=== PATIENT | male | born 1985 | race Caucasian/White ===

== ENCOUNTER → 2021-10-31 09:43 | Outpatient (CLI) | payer BC, SELFPAY ==
[2021-11-01 23:20] LABS: SARS-CoV-2 RNA PCR Positive
== END ==
PROVIDERS: PCP Nurse Practitioner; Visit Provider Nurse Practitioner
DX: U07.1 COVID-19 (principal)
CPT/HCPCS: C9803; U0003; U0005

== ENCOUNTER 2024-06-06 09:52 | Outpatient (CLI) | payer BC, SELFPAY ==
--- NOTE | ~2024-06-06 | US_ITS ---
EXAMINATION: US soft tissue groin RT DATE: 06/06/2024 10:05 INDICATION: Other intra-abdominal and pelvic swelling. TECHNIQUE: Multiple grayscale and Doppler ultrasound images of the right groin were obtained. COMPARISON: None FINDINGS: There is a right inguinal hernia containing fat. IMPRESSION: 1. Right inguinal hernia containing fat. Reviewed, dictated and finalized at location A.
== END 2024-06-06 09:53 ==
LOC: GOSHIMG 09:53
PROVIDERS: PCP Nurse Practitioner Family; Visit Provider Nurse Practitioner Family
DX: R19.09 Other intra-abdominal and pelvic swelling, mass and lump (principal); K40.90 Unilateral inguinal hernia, without obstruction or gangrene, not specified as recurrent
CPT/HCPCS: 76882

== ENCOUNTER 2024-07-06 09:14 | Outpatient (CLI) | payer BC, SELFPAY ==
[2024-07-11 10:41] VITALS: BMI 29.5
--- NOTE | 2024-07-11 10:41 | WPDHOMESLEEP ---
Sleep Study - Home Unattended Date of Study: 07/06/24 Ordering Provider: Felicia Odonnell NP Interpreting Provider: Daya Jones DO Home Sleep Study Type: Watch PAT Height: 1.75 m Weight: 90.718 kg Body Mass Index: 29.5 Neck Circumference (inches): 17 Adel: 1 Reason for Sleep Study Snoring, difficulty falling asleep Sleep History The patient is a 39-year-old male that had a sleep study ordered by his primary care for evaluation of sleep apnea. The patient states that he has loud snoring, excessive daytime sleepiness and difficulty falling asleep. He denies having witnessed apneas during the night. He denies choking and gasping while asleep. He denies having trouble breathing on his back. He denies waking up with a headache in the morning. He does admit to having a dry mouth or throat in the morning. He denies nocturnal heartburn. He denies nocturia. He denies having difficulty maintaining sleep. He does have difficulty returning to sleep if he does wake up during the night. He currently uses a hypnotic or sedative to help him sleep. He denies having anxiety about sleep. He does admit to having under refreshing sleep feeling tired in the morning. He denies having the urge to fall asleep during the day. He denies feeling drowsy while driving. He does admit to clenching or grinding his teeth. He denies kicking or jerking his legs excessively during the night. He goes to bed at 11:00 p.m. on work days and 11:45 p.m. on is stays. It takes him 30 minutes to fall asleep. He typically gets 6 hours of sleep on work days and 6-1/2 hours of sleep on his days off. He denies taking any planned naps. He denies having sleep paralysis, cataplexy and hypnagogic/ hypnopompic hallucinations. He consumes 1-2 cups of caffeinated beverage per day. He consumes 1-2 glasses of an alcoholic beverage twice per week. He denies smoking cigarettes. He denies having a rotating shift schedule at work. [facility] Past Medical History Medical History Bilateral knee pain BMI 29.0-29.9,adult Elevated BP without diagnosis of hypertension Elevated fasting glucose Hyperlipidemia Hypersomnia Lump in the groin Seasonal allergies Snoring Witnessed episode of apnea Surgical History Surgical History H/O: vasectomy 2021 Family History Family History Father Diabetes mellitus Grandparent Hypertension Social History Social History Smoking status: Never smoker Alcohol intake: current Alcohol use details: Beer- 4-5 a week Substance use: never Do You Feel Safe in your Home?: Yes Lack of Transportation: No Lack of Food: Never True Current Housing: I Have Housing Concerned About Future Housing: No Difficulty Paying Gas/Electric Bills: No Difficulty Paying for Meds: No Currently Unemployed: No Education: Bachelor's Degree Difficulty w/ Childcare or Family Care: No Medications Home Medications Medication Instructions Recorded Confirmed Type cetirizine 10 mg tablet (Zyrtec) 10 mg PO DAILY 03/01/24 06/15/24 History fluticasone propionate 50 1 spray intranasal DAILY 03/01/24 06/15/24 History mcg/actuation nasal spray,suspension (Flonase Allergy Relief) multivitamin 1 tablet PO DAILY 03/01/24 06/15/24 History atorvastatin 10 mg tablet 10 mg PO DAILY #90 tabs 05/19/24 06/15/24 Rx Sleep Procedure The sleep study was completed using [employer] a technically adequate device with seven channels: peripheral arterial tone, actigraphy, body position, snore, respiratory movement, pulse oximetry, sleep staging, and heart rate. Prior to using the device, the patient received verbal and written instructions for its application and was provided with the [employer] desk phone number for [employer]
== END 2024-07-10 09:46 | disposition home or self-care (01) ==
LOC: ANHCSM 09:15
PROVIDERS: PCP Nurse Practitioner Family; Visit Provider Nurse Practitioner Family
DX: G47.9 Sleep disorder, unspecified (principal)
CPT/HCPCS: 95800

== ENCOUNTER 2024-08-11 08:34 | Outpatient (CLI) | payer BC, SELFPAY | END 2024-08-11 08:35 | disposition home or self-care (01) | LOC: ANHSURGERY 08:36 | PROVIDERS: PCP Nurse Practitioner Family; Visit Provider Surgery | DX: K40.90 Unilateral inguinal hernia, without obstruction or gangrene, not specified as recurrent (principal); Z01.818 Encounter for other preprocedural examination | CPT/HCPCS: 36415; 86850; 86900; 86901 ==

== ENCOUNTER 2024-08-15 02:38 | Day surgery (SDC) | payer BC, SELFPAY ==
[2024-08-08 13:07] VITALS: BMI 29.5
--- NOTE | 2024-08-08 13:08 | PC.NURSE ---
Report to the Outpatient Waiting Room, entrance under the green pavilion located off [facility], at time _1130_ on date _[id number]_. Planned Procedure Time: _130pm_.? Time changes happen often and if your time is changed the preop area will call you the afternoon before. - You and your visitor will be asked to self-screen and do not enter if you have any COVID symptoms. Please call surgeon if you need to reschedule. - A mask is optional within the hospital at this time. Patients may have clear liquids (water, carbonated beverages, clear teas, apple juice) until 3 hours prior to surgery with a maximum of 20 ounces. - No food from midnight until time of surgery and no smoking Take only the following medications with a SIP of water on the morning of surgery: ___Flonase___ DO NOT STOP ANY OF YOUR OTHER PRESCRIPTION MEDICATIONS PRIOR TO SURGERY EXCEPT THE FOLLOWING Medications to discontinue per physician ___Multivitamin and fish oil Date to take last qzkc___[id number] Please no make-up, nail french, hairspray, perfume, deodorant, or body powder the day of surgery.? No jewelry (including any body piercings) or valuables the day of surgery, leave them at home.? Please take a shower or bath the night before, or the morning of, surgery with an antibacterial soap.? Wear comfortable, loose fitting clothing.? - Jewelry must be removed prior to entering the operating room.? Rings and piercings that are not removed may be cut off. - The hospital will not accept responsibility for valuables.? - Please leave all valuables, including medications, at home the day of surgery. If you are going home after surgery, a licensed personal driver must drive you home.? - NO public transportation without another adult if you receive anesthesia. - We recommend that an adult stay with you for 24 hours following discharge. - We also recommend that you do not drive, make important decision, drink alcoholic beverages, or take any drugs that were not prescribed by your health care provider for at least 24 hours after your discharge time. Follow any additional instructions given to you from your surgeon. Telephone instructions given to __Kyler__and asked if any additional questions and then verbalized understanding. Patient advised to call surgeon office or pre surgery nurse liaison [phone] if any additional questions.
[2024-08-15] VITALS (10 sets, daily range): BP systolic 114–148; BP diastolic 73–100; PULSE 71–82; RESP 16–20; TEMP 36.5–36.9; O2SAT 96–100
[2024-08-15] MEDS: ACETAMINOPHEN 500 MG TABLET 1000 MG PO (12:15)
[2024-08-15] MEDS: KETOROLAC 15 MG/ML VIAL (*BKC) IV PUSH (12:25)
--- NOTE | 2024-08-15 12:54 | P.PNAN_ITS ---
Anes - Initial Pre Proc Eval Procedure: Operation Date: 08/15/24 13:30 Proposed Procedures p Robotic Assisted Laparoscopic Right Inguinal Hernia Repair with Mesh, Possible Left Inguinal Hernia Repair - Rolf Colunga MD Date/Time: 08/15/24 12:54 Surgeon: Rolf Colunga MD Pre Op Diagnosis: reducible right inguinal hernia Patient Data Age: 39 Gender: M Height: 1.75 m Weight: 88.6 kg Last Vital Signs Temp 36.9 C 08/15/24 11:46 Pulse 74 08/15/24 11:46 Resp 18 08/15/24 11:46 BP 130/88 08/15/24 11:46 Pulse Ox 96 08/15/24 11:46 O2 Del Method Room Air 08/15/24 11:46 Allergies Allergy/AdvReac Type Severity Reaction Status Date / Time Penicillins Allergy Hives Verified 08/08/24 12:59 Home Medications Medication Instructions Recorded Confirmed Type cetirizine 10 mg tablet (Zyrtec) 10 mg PO DAILY 03/01/24 08/08/24 History fluticasone propionate 50 1 spray intranasal DAILY 03/01/24 08/08/24 History mcg/actuation nasal spray,suspension (Flonase Allergy Relief) multivitamin 1 tablet PO DAILY 03/01/24 08/08/24 History atorvastatin 10 mg tablet 10 mg PO DAILY #90 tabs 05/19/24 08/08/24 Rx omega 9-ybq-lcm-fish oil 1,200 mg 1 cap PO DAILY 08/08/24 08/08/24 History (144 mg-216 mg) capsule (Fish Oil) Patient hx anesthesia problems: none Family hx anesthesia problems: none Results Review: All pre-operative results and documents have been reviewed as part of the pre- operative evaluation. [facility], [facility] Past Medical History Medical History Bilateral knee pain BMI 29.0-29.9,adult Elevated BP without diagnosis of hypertension Elevated fasting glucose Hyperlipidemia Hypersomnia Lump in the groin Seasonal allergies Snoring Witnessed episode of apnea Surgical History Surgical History H/O: vasectomy 2021 Family History Family History Father Diabetes mellitus Grandparent Hypertension Social History Social History Smoking status: Never smoker Alcohol intake: current Drinks per week: 5 Alcohol use details: Beer- 4-5 a week Substance use: never Do You Feel Safe in your Home?: Yes Lack of Transportation: No Lack of Food: Never True Current Housing: I Have Housing Concerned About Future Housing: No Difficulty Paying Gas/Electric Bills: No Difficulty Paying for Meds: No Currently Unemployed: No Education: Bachelor's Degree Difficulty w/ Childcare or Family Care: No Living arrangements: with family Spiritual care concerns: No Anes - Eval Final PreProcedure Day of Procedure 08/15/24 12:54 Patient weight: overweight Heart: regular rate and rhythm Lungs: clear to auscultation Airway: Mallampati scale class II Neurological: alert and oriented Last oral intake: >/= 8 hours ASA classification: II Emergent: no Anesthetic plan: proceed Anesthesia type and monitoring: general ETT and standard monitoring Results Review: All pre-operative results and documents have been reviewed as part of the pre- operative evaluation. Informed Consent: The patient's anesthetic plan and its attendant risks and benefits were discusse d with the patient/family/POA. Questions were solicited and answers provided to the satisfaction of the patient/family/POA.
--- NOTE | 2024-08-15 13:17 | PM.IMHP ---
H&P: HPI History of Present Illness Date/Time: 08/15/24 13:17 Chief Complaint: Right inguinal hernia Narrative: Santi is a 39 y/o male who presents with a right groin bulge at the request of Felicia Odonnell NP. He started having symptoms of pain in April after lifting his child multiple times. He does note a small bulge that is reducible when he lays down. U/S was done at [facility] on 06/06/24 which showed a right inguinal hernia containing fat. Review of Systems Review of Systems: The remainder of the review of systems to include constitutional, HEENT, cardiovascular, respiratory, GI, , integumentary, musculoskeletal, endocrine, immunologic, hematologic, psychiatric, and neurologic are all negative except for which is mentioned above in the HPI. [facility] Past Medical History Medical History Bilateral knee pain BMI 29.0-29.9,adult Elevated BP without diagnosis of hypertension Elevated fasting glucose Hyperlipidemia Hypersomnia Lump in the groin Seasonal allergies Snoring Witnessed episode of apnea Surgical History Surgical History H/O: vasectomy 2021 Family History Family History Father Diabetes mellitus Grandparent Hypertension Social History Social History Smoking status: Never smoker Alcohol intake: current Drinks per week: 5 Alcohol use details: Beer- 4-5 a week Substance use: never Do You Feel Safe in your Home?: Yes Lack of Transportation: No Lack of Food: Never True Current Housing: I Have Housing Concerned About Future Housing: No Difficulty Paying Gas/Electric Bills: No Difficulty Paying for Meds: No Currently Unemployed: No Education: Bachelor's Degree Difficulty w/ Childcare or Family Care: No Living arrangements: with family Spiritual care concerns: No Meds Home Medications and Allergies Home Medications Medication Instructions Recorded Confirmed Type cetirizine 10 mg tablet (Zyrtec) 10 mg PO DAILY 03/01/24 08/08/24 History fluticasone propionate 50 1 spray intranasal DAILY 03/01/24 08/08/24 History mcg/actuation nasal spray,suspension (Flonase Allergy Relief) multivitamin 1 tablet PO DAILY 03/01/24 08/08/24 History atorvastatin 10 mg tablet 10 mg PO DAILY #90 tabs 05/19/24 08/08/24 Rx omega 7-ask-fdw-fish oil 1,200 mg 1 cap PO DAILY 08/08/24 08/08/24 History (144 mg-216 mg) capsule (Fish Oil) Allergies Allergy/AdvReac Type Severity Reaction Status Date / Time Penicillins Allergy Hives Verified 08/08/24 12:59 Vital Signs Vital Signs - 24 hr 08/15/24 11:46 Temperature 36.9 C Pulse Rate 74 Respiratory Rate 18 Blood Pressure 130/88 Pulse Oximetry 96 Oxygen Delivery Room Air Exam Const: General: comfortable and no acute distress HENMT: Ears: TM's normal bilaterally Face/Nose/Sinus: Normal nares present Mouth: Yes moist mucous membranes Eyes: General: appearance normal, both eyes and all related structures Sclera: sclerae normal Pupils: Equal, round and reactive pupils present EOM: EOMs intact bilaterally Neck: Neck: supple and no JVD Thyroid: thyroid normal Resp: Effort & Inspection: normal respiratory effort Auscultation: clear to auscultation bilaterally Cardio: Rate: regular rate Rhythm: regular rhythm GI: GI Palp: Yes Soft to palpation, No Firmness to palpation present (GI), No Tenderness to palpation present (GI), No Guarding due to palpation present (GI) and No Hernia present : Other: Small-moderate sized right inguinal hernia. Bilateral testes descended without masses. No obvious left inguinal hernia. Skin: General skin exam: normal color and no rashes or lesions noted Neuro: General: gait normal Speech: normal speech Motor exam (neuro): 5/5 motor strength present throughout Sensory Exam: normal sensation Extrem: General: normal to inspection Psych: Mental Status: mental status grossly normal Affect: normal affect Assessment and Plan Assessment and plan (1) Right inguinal hernia: Code(s): K40.90 - Unilateral inguinal hernia, without obstruction or gangrene, not specified as recurrent Status: Acute Assessment and Plan: I have reviewed Felicia Odonnell's office note prior to the office visit. The patient has a right groin bulge that causes pain. A right inguinal hernia was noted on physical exam. I have recommended a robotic assisted laparoscopic RIH repair, possible LIH repair, to be done under general anesthesia as an outpatient. The procedure was discussed in detail including the use of mesh, general description, and usual course of recovery. Risks of recurrence, infection, postop bleeding, prolonged postop pain, possible need to return to surgery were discussed as well. All questions were answered.
--- NOTE | 2024-08-15 13:22 | WPDHPUPDATE1 ---
History and Physical Update Update Date/Time: 08/15/24 13:22 History and Physical has been reviewed, including an updated exam of the patient. There are NO changes in the patient's condition. Risks, benefits, and alternatives have been discussed and questions answered. Patient agrees to proceed with procedure.
[2024-08-15] MEDS: ceFAZolin 2 GM/D5W 50 ML 2 GM/50 ML BAG IVPB (13:29)
[2024-08-15] MEDS: BUPivacaine HCL 0.5% PF 30 ML VIAL INFILTRATE (14:02)
[2024-08-15] MEDS: LIDO 1%/EPINEPHRINE 1:100,000 20 ML VIAL 30 ML INFILTRATE (14:02)
[2024-08-15] MEDS: LACTATED RINGERS 1,000 ML 30 ML IV CONT ×3 (16:39→17:55)
[2024-08-15] MEDS: fentaNYL CITRATE INJ (*CRX) 100 MCG/2 ML VIAL 25 MCG IV PUSH ×4 (17:19→17:42)
--- NOTE | 2024-08-15 18:03 | PM.OP ---
Procedure Note - Brief Procedure Note - Brief Date of procedure: 08/15/24 reducible right inguinal hernia Post-op diagnosis: Same Procedure performed: Robotic assisted laparoscopic right inguinal hernia repair with Bard 3D mid weight mesh Surgeon: Rolf Colunga MD Anesthesia: GETA Implants: Bard 3D mid weight mesh [id number] Estimated blood loss (mL): 50 Drains: No Packing: No Pathology: None sent Complications: No immediate complications Condition: Stable Disposition: PACU
[2024-08-15] MEDS: oxyCODONE HCL (*CRX) 5 MG TAB IR PO (18:08)
--- NOTE | 2024-08-16 16:43 | W.PM.PROC2 ---
Procedure Note - Detailed Date of Procedure 08/16/24 Pre-op Diagnosis Reducible right inguinal hernia Post-op Diagnosis Other Procedure Performed Reducible pantaloon right inguinal hernia Surgeon Rolf Colunga MD Technical Internship RADHA Partida Anesthesia General Indications patient is a 39-year-old male who presented with complaints of pain bulging in his right groin region. On examination had a reducible right inguinal hernia. He presents now for elective repair the right inguinal hernia via robotic assisted laparoscopic repair with mesh. Findings The patient reducible right inguinal hernia. It was actually a large pantaloon right inguinal hernia. No incarcerated bowel or omentum was within the hernia defect. There was preperitoneal fat and cord lipoma noted within the defects . An extra large piece of Bard 3D mid weight mesh was used for the repair. It was [id number]. Description of Procedure After informed consent was obtained patient brought to the operating room was placed supine position and general endotracheal anesthesia was administered. The abdomen and bilateral groin regions were then prepped and draped usual sterile fashion. A time-out was then performed correctly identifying the patient as well as procedure to be performed. The site marking was identified and was given perioperative IV antibiotics. I then entered the abdomen left upper quadrant utilizing a 10mm Optiview port. Once inside the abdomen insufflated to adequate pneumoperitoneum of 15mmHg of CO2. Patient was then placed in 15degree head-down Trendelenburg position to allow the bowel to fall away from the pelvis. I could then easily see there was no evidence of a left inguinal hernia. The right inguinal hernia appeared to have both a direct and indirect component on initial evaluation indicative of a pantaloon right inguinal hernia. There was no omentum or bowel within the hernia defects . I then placed additional trocar ports to include 8mm trocar ports along the mid abdomen and then brought the [employer] Josselyn robot to the patient's right side and then docked the arms to the robotic ports. Robotic instruments were then advanced into the abdomen under visualization. I then scrubbed out the procedure sent down the robotic console to perform dissection. I incised the peritoneum on the right lower abdomen anterior medial to the right anterior superior iliac spine. I carried across the lower right abdomen and onto the median umbilical ligament dividing the right side of the median umbilical ligament. I continued dissection preperitoneal plane distally and dissected down to both the internal ring where the indirect defect was noted and the pubic tubercle where just above it was the direct defect. I dissected down along the pubic tubercle until I reached the pubic symphysis. I dissected down into the space of Retzius for couple cm displacing the bladder anterior to dissect into the space. I was then able to appreciate the patient also had a femoral component to this pantaloon right inguinal hernia. There was preperitoneal fat in the femoral canal which was dissected free with robotic dissection. I then proceeded to dissect the preperitoneal fat out of the pseudo sac of the direct defect. This was a relatively large defect. I then dissected the hernia sac of the indirect defect. I dissected the peritoneum all the way back up onto the psoas muscle and proximal to where the vas deferens and testicular vessels divided. At 1 point I then had some bleeding from the testicular artery as I tried to dissect out the cord lipoma. This was controlled and closed with placement of a single 5-0 Prolene suture in figure-eight fashion. The cord lipoma was then placed in the left side of the abdomen to be removed and the procedure. At this point I then decided to choose a piece of mesh for the repair. I chose an extra large piece of Bard 3D mid weight mesh measuring [id number]. I contemplated closing the direct defect imbricating the hernia sac however the defect was large and I felt that there would be excess tension on the closure of the defect and so it was not done. The mesh was then placed into the abdomen through the bedside project construction assistant manager port site and then spread out in the whole dissected space to cover the whole myopectineal orifice. The mesh extended beyond the pubic symphysis the left side. It was secured at the pubic symphysis and at the pubic tubercle with 2-0 Vicryl sutures. Anterior and medial to the right anterior superior iliac spine the mesh was secured to the muscle fibers utilizing 2-0 Vicryl sutures. Additional 2-0 Vicryl sutures I then placed on the rectus muscles help keep the mesh from bulging out into the pseudo sac in the direct space. I then aspirated some the blood clot from the area from the previous bleeding from the testicular artery. I checked again was all hemostatic. I then closed the peritoneal flap utilizing a running 2-0 absorbable V lock suture. The mesh was now completely pre was not in contact with any of the intra-abdominal viscera. The cord lipoma was then placed into an Endo-Catch bag and brought out through the left upper quadrant trocar port site. It was discarded and not sent to pathology. I then proceeded to remove all the trocar ports under direct visualization all port sites appeared hemostatic. The abdomen was allowed to decompress. I then closed the left upper quadrant 12mm trocar port fascial defect in the 8mm umbilical trocar port fascial defect utilizing 0 Vicryl sutures placed in a figure-eight fashion. the incisions were then irrigated sterile saline solution and then hemostasis was assured. I then closed the port site incisions at the skin level utilizing running subcuticular 4 Monocryl sutures. The patient tolerated the procedure well no complications. All sponges, needles, and instrument counts were correct at the end procedure. EBL was _50__cc. The patient was awakened and taken to recovery in stable and satisfactory condition. Implants Extra-large 17x12 Bard 3D mid weight mesh oriented for right side. Estimated Blood Loss 50 Drains No Packing No Pathology None sent Complications No immediate complications Condition Stable Disposition PACU [facility] Billing Surgery - Charge Forward: Surgery Billing
== END 2024-08-15 19:00 | disposition home or self-care (01) ==
PROVIDERS: PCP Nurse Practitioner Family; Visit Provider Surgery
PROC: 8E0Y4CZ Robotic Assisted Procedure of Lower Extremity, Percutaneous Endoscopic Approach (ICD-10-PCS; CPT 49650; principal; 2024-08-15 13:30)
DX: K40.90 Unilateral inguinal hernia, without obstruction or gangrene, not specified as recurrent (principal); E78.5 Hyperlipidemia, unspecified; G47.10 Hypersomnia, unspecified; R03.0 Elevated blood-pressure reading, without diagnosis of hypertension; Z98.890 Other specified postprocedural states
CPT/HCPCS: 49505; A9270; C1781; J0690; J1100; J1171; J1885; J2003; J2004; J2250; J2405; J2704; J3010; J7120

== ENCOUNTER 2024-10-01 16:47 | Emergency (ER) | payer BC, SELFPAY ==
[2024-10-01 16:57] VITALS: BP 138/96; PULSE 94; RESP 18; TEMP 36.6; O2SAT 99
--- NOTE | 2024-10-01 18:11 | ED.GENADULT ---
HPI - General Adult General Chief complaint: Wound/Laceration Stated complaint: LT Hand Finger Cut Source: patient Mode of arrival: ambulatory Limitations: no limitations History of Present Illness HPI narrative: Patient presents for evaluation of a laceration to the left index finger. 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 He accidentally cut himself with a box truck washer. He reports mild pain in the affected area that he describes as tingling. No loss of range of motion. He is not diabetic. He is UTD on tetanus. he is right-hand dominant. Related Data Home Medications ?Medication ?Instructions ?Recorded ?Confirmed ?Last Taken ?Type cetirizine 10 mg tablet (Zyrtec) 10 mg PO DAILY 03/01/24 09/06/24 Unknown History fluticasone propionate 50 1 spray intranasal DAILY 03/01/24 09/06/24 Unknown History mcg/actuation nasal spray,suspension (Flonase Allergy Relief) multivitamin 1 tablet PO DAILY 03/01/24 09/06/24 Unknown History omega 8-ddy-gxc-fish oil 1,200 mg 1 cap PO DAILY 08/08/24 09/06/24 Unknown History (144 mg-216 mg) capsule (Fish Oil) Allergies Allergy/AdvReac Type Severity Reaction Status Date / Time Penicillins Allergy Mild Hives Verified 10/01/24 16:49 Review of Systems Review of Systems: CONSTITUTIONAL: Denies fever, chills, or sweats. EYES: Denies visual changes, redness, or discharge. ENT: Denies rhinorrhea, congestion, sore throat, or otalgia. CARDIOVASCULAR: Denies chest pain, palpitations, or edema. RESPIRATORY: Denies cough or dyspnea. GASTROINTESTINAL: Denies abdominal pain, nausea, vomiting, or diarrhea. GENITOURINARY: Denies dysuria or hematuria. SKIN: reports left index finger laceration. MUSCULOSKELETAL: Reports mild pain in the left index finger. Denies loss of range of motion. NEUROLOGIC: Denies headache, numbness, dizziness, or weakness. PSYCHIATRIC: Denies anxiety or depression. [facility] Past Medical History Medical History Patellofemoral pain syndrome Right knee DJD Left knee DJD Right knee pain Left knee pain BMI 29.0-29.9,adult Lump in the groin Elevated BP without diagnosis of hypertension Witnessed episode of apnea Hypersomnia Snoring Bilateral knee pain Elevated fasting glucose Hyperlipidemia Seasonal allergies Surgical History Surgical History H/O inguinal hernia repair 08/16/24 Reducible pantaloon right inguinal hernia Dr. [place] H/O: vasectomy 2021 Family History Family History Father Diabetes mellitus Grandparent Hypertension Social History Social History Smoking status: Never smoker Alcohol intake: current Drinks per week: 5 Alcohol use details: Beer- 4-5 a week Substance use: never Do You Feel Safe in your Home?: Yes Lack of Transportation: No Lack of Food: Never True Current Housing: I Have Housing Concerned About Future Housing: No Difficulty Paying Gas/Electric Bills: No Difficulty Paying for Meds: No Currently Unemployed: No Education: Bachelor's Degree Difficulty w/ Childcare or Family Care: No Living arrangements: with family Spiritual care concerns: No Exam Narrative: GENERAL: Well-appearing, well-nourished, and in no acute distress. HEAD: Normocephalic, atraumatic. EYES: PERRLA and EOMI. ENT: Nares clear, no rhinorrhea or epistaxis. Mucous membranes moist. Oropharynx without tonsillar hypertrophy exudate or other lesions. Bilateral TMs pearly corea nonbulging NECK: Supple. No adenopathy or masses. No carotid bruits or JVD CHEST: Clear to auscultation. No respiratory distress. No wheezes rales or rhonchi HEART: Regular rate and rhythm. No murmur heard. Normal peripheral pulses. ABDOMEN: Soft, nontender, nondistended, normal active bowel sounds. EXTREMITIES: Normal range of motion. No edema. SKIN: There is a one cm linear laceration to dorsal aspect of PIP joint of left index finger NEURO: No focal deficits. Alert and oriented x3. PSYCH: Normal mood and affect. Course Course Emergency Course: This is a 39-year-old male who presented for evaluation of a laceration to the left index finger. Wound was thoroughly cleaned and closed with 2 sutures. Antibiotic ointment applied. Patient tolerated well. Advised on wound care. Follow up with primary provider. Go to the ER for evidence of infection. Pt in agreement with plan of care. Level of Care: Express Care Visit Vital Signs Vital signs: Vital Signs Temperature 36.6 C 10/01/24 16:57 Pulse Rate 94 10/01/24 16:57 Respiratory Rate 18 10/01/24 16:57 Blood Pressure 138/96 H 10/01/24 16:57 Pulse Oximetry 99 10/01/24 16:57 Oxygen Delivery Room Air 10/01/24 16:57 Temperature 36.6 C 10/01/24 16:57 Pulse Rate 94 10/01/24 16:57 Respiratory Rate 18 10/01/24 16:57 Blood Pressure 138/96 H 10/01/24 16:57 Pulse Oximetry 99 10/01/24 16:57 Oxygen Delivery Room Air 10/01/24 16:57 Procedures Laceration Laceration 1: Date: 10/01/24 Time: 18:17 Site: hand (left index finger) Side (If applicable): left Size (cm): 1 Description: linear Local Anesthetic: lidocaine 1% Pre-repair: wound explored and irrigated ====== Skin Level ====== Skin layer closed with: nylon Size (cm): 5-0 Number of sutures: 2 Technique: simple, interrupted ====== Subcutaneous Layer ====== ====== Muscle Layer ====== ====== Tendon Layer ====== Medical Decision Making Vital Signs Vital Signs: Vital Signs Temperature 36.6 C 10/01/24 16:57 Pulse Rate 94 10/01/24 16:57 Respiratory Rate 18 10/01/24 16:57 Blood Pressure 138/96 H 10/01/24 16:57 Pulse Oximetry 99 10/01/24 16:57 Oxygen Delivery Room Air 10/01/24 16:57 Temperature 36.6 C 10/01/24 16:57 Pulse Rate 94 10/01/24 16:57 Respiratory Rate 18 10/01/24 16:57 Blood Pressure 138/96 H 10/01/24 16:57 Pulse Oximetry 99 10/01/24 16:57 Oxygen Delivery Room Air 10/01/24 16:57 Discharge Plan Discharge Clinical Impression: Finger laceration Patient Disposition: Home, Self-Care Condition: Stable Instructions: Antibiotic Form, Care For Your Stitches (ED), Finger Laceration (ED) Patient Language: Spanish Prescriptions: No Action multivitamin Tablet 1 tablet PO DAILY cetirizine [Zyrtec] 10 mg tablet 10 mg PO DAILY fluticasone propionate [Flonase Allergy Relief] 50 mcg/actuation spray,suspension 1 spray intranasal DAILY Rx Instructions: administer into each nostril atorvastatin 10 mg tablet 10 mg PO DAILY Qty: 90 3RF omega 1-hav-rsw-fish oil [Fish Oil] 1,200 (144-216) mg Capsule 1 cap PO DAILY Follow-up/Referrals: Felicia Odonnell NP [Primary Care Provider] - Time of Disposition: 18:08
--- OUTSIDE RECORDS SUMMARY | 2024-10-06 14:43 | XMS_ITS | Referral Summary ---
Author Organization [facility] Address [address] [place] [address] Care Team Providers Care Solutions Sales Executive Name Role Phone Unavailable Primary Care Provider Unavailabl e Source Comments [facility],non-owned Affiliates and Associated Physician Practices is amultiple site organization consisting of ambulatory clinics and hospital sitesin [place], [place], [place] and [place]. This disclosure is being madepursuant to the Care Everywhere program and may not contain all information available regarding this patient. Last updated 18.[facility] Social History Tobacco Use Types Packs/Day Years Used Date Smoking Tobacco: Never Assessed Sex and Gender Information Value Date Recorded Sex Assigned at Not on file Gender Identity Not on file Sexual Orientation Not on file Plan of Treatment Not on file
--- OUTSIDE RECORDS SUMMARY | 2024-10-06 14:43 | XMS_ITS | Clinical Summary ---
Author Organization [facility] Address [address] [place] [address] Care Team Providers Care Tripe Scraper Name Role Phone Unavailable Primary Care Provider Unavailabl e Source Comments [facility],non-owned Affiliates and Associated Physician Practices is amultiple site organization consisting of ambulatory clinics and hospital sitesin [place], [place], [place]. This disclosure is being madepursuant to the Care Everywhere program and may not contain all information available regarding this patient. Last updated 18.[facility] Social History Tobacco Use Types Packs/Day Years Used Date Smoking Tobacco: Never Assessed Sex and Gender Information Value Date Recorded Sex Assigned at Not on file Gender Identity Not on file Sexual Orientation Not on file Plan of Treatment Health Maintenance Due Date Last Done Comments LIPID TESTING 1984 HIV SCREENING 1999 HEPATITIS C SCREENING 03/28/2002 DTAP/TDAP/TD VACCINES (1 - Tdap) 2003 HEPATITIS B VACCINE (1 of 3 - 19+ 3-dose series) 2003 DEPRESSION SCREENING 10/18/2023 COVID-19 VACCINE (1 - 2023-2 5 season) 2024 INFLUENZA VACCINE (#1) 2024 ZOSTER VACCINE (1 of 2) 2034 HIB VACCINE Aged Out No longer eligi ble based on patient's age to complete this topic HPV VACCINE Aged Out No longer eligi ble based on patient's age to complete this topic MENINGOCOCCAL VACCINE Aged Out No leann lizzy eligible based on patient's age to complete this topic PNEUMOCOCCAL VACCINE Aged Out No long er eligible based on patient's age to complete this topic
--- OUTSIDE RECORDS SUMMARY | 2024-10-06 14:43 | XMS_ITS | Encounter Summary ---
Author Organization [facility] Address [address] [place] [address] Care Team Providers Care Pond Worker Name Role Phone Unavailable Primary Care Provider Unavailabl e Encounter Details Date Type Department Care Team (Late st Contact Info) Description 08/06/2020 Lab Requisition [facility] Care D[facility] Lab [address] [place] [id number] Jorge Diaz MD [address] [place] [address] Social History Tobacco Use Types Packs/Day Years Used Date Smoking Tobacco: Never Assessed Sex and Gender Information Value Date Recorded Sex Assigned at Not on file Gender Identity Not on file Sexual Orientation Not on file documented as of this encounter Plan of Treatment Not on file documented as of this encounter Procedures Procedure Name Priority Date/Time Associated Diagnosis Comments DERMATOPATHOLOGY Routine 08/02/2020 12:0 0 AM CDT documented in this encounter Results * DERMATOPATHOLOGY (08/02/2020 12:00 AM CDT) Case Report Dermatopathology Report ? Case: [id number] ? Authorizing Provider: ??Jorge Diaz MD ?Collected: ? 08/02/2020 12:00 AM ? Ordering Location: ? [facility] ?Received: ?08/06/2020 06:25 AM ? Pathologist: ? Xochilt Ferrell MD ? Specimen: ?Skin, right side ? 0 1:37 PM [facility] DERMATOPATHOLOGY LABORATORY Addendum 1 This addendum is issued to report the results of a MART-1/Melan-A stain which failed to reveal a melanocytic proliferation. 0 1:37 PM [facility] DERMATOPATHOLOGY [facility]ORATORY Addendum electronically signed by Xochilt Ferrell MD on 08/14/2020 at 1:37 PM Final Diagnosis Specimen A. SKIN, right side: GRANULOMATOUS DERMATITIS CONSISTENT WITH A RUPTURED CYST OR HAIR FOLLICLE (L72.0) 0 1:37 PM [facility] DERMATOPATHOLOGY LABORATORY Clinical History Nevus vs MM vs angioma. Path # [id number]. 0 1:37 PM [facility] DERMATOPATHOLOGY [facility] Gross Description Specimen A: Received is one formalin filled container labeled with the patient's name and designated right side. The specimen consists of a shave biopsy measuring [id number]. Jar 0. 0 1:37 PM [facility] DERMATOPATHOLOGY LABORATORY Microscopic Description Specimen A. SKIN, right side: Neutrophils, histiocytes, and multinucleated giant cells are present within the dermis. 0 1:37 PM [facility] DERMATOPATHOLOGY [facility]ORAT[facility] Disclaimer An external and internal positive and negative controls are appropriate for the histochemical, immunohistochemical and immunofluorescence stain(s) in this case (if any), except where stated explicitly. The performance characteristics of the stain(s) cited in this report were developed and its performance characteristic determined by the Dermatopathology Laboratory at [facility], directed by Dr. Tobin Simpson. These tests need not be, and therefore are not, approved by the [place] Food and Drug Administration. The tests are used for clinical purposes. Billing Codes Specimen Charges Stain Charges 01193 1 44669 1 0 1:37 PM CDT DERMATOPATHOLOGY LABORATORY Embedded Images 0 1:37 PM CDT DERMATOPATHOLOGY LABORATORY Pathology/Cytolog y TISSUE SPECIMEN FROM SKIN / Unknown 08/02/2020 08/06/2020 6:25 AM CDT Jorge Diaz MD LAB - PATHOLOGY/CYTO LOGY ORDERABLES DERMATOPATHOLOGY LABORATORY [facility] - Department of Dermatology [facility] Medicine [address] [place] [address], [address] [phone] documented in this encounter Visit Diagnoses Not on filedocumented in this encounter
--- OUTSIDE RECORDS SUMMARY | 2024-10-06 14:43 | XMS_ITS | Patient Health Summary ---
Author Organization [facility] Address [address] [place] [address] Care Team Providers Care Route Agent Name Role Phone Unavailable Primary Care Provider Unavailabl e Note from [facility],non-owned Affiliates and Associated Physician Practices is amultiple site organization consisting of ambulatory clinics and hospital sitesin [place], [place], [place] and [place]. This disclosure is being madepursuant to the Care Everywhere program and may not contain all information available regarding this patient. Last updated 18.[facility] Social History Tobacco Use Types Packs/Day Years Used Date Smoking Tobacco: Never Assessed Sex and Gender Information Value Date Recorded Sex Assigned at Not on file Gender Identity Not on file Sexual Orientation Not on file Procedures * DERMATOPATHOLOGY(Performed 08/02/2020) * DERMATOPATHOLOGY(Performed 01/23/2015) * DERMATOPATHOLOGY(Performed 01/10/2015) Results * DERMATOPATHOLOGY (08/02/2020 12:00 AM CDT) Only the most recent of3 resultswithin the time period is included. Case Report Dermatopathology Report ? Case: [id number] ? Authorizing Provider: ??Jorge Diaz MD ?Collected: ? 08/02/2020 12:00 AM ? Ordering Location: ? [facility] Care Derm[facility] Lab ?Received: ?08/06/2020 06:25 AM ? Pathologist: ? Xochilt Ferrell MD ? Specimen: ?Skin, right side ? 0 1:37 PM T DERMATOPATHOLOGY LABORATORY Addendum 1 This addendum is issued to report the results of a MART-1/Melan-A stain which failed to reveal a melanocytic proliferation. 0 1:37 PM [facility] DERMATOPATHOLOGY LABORATORY Addendum electronically signed by Xochilt Ferrell MD on 08/14/2020 at 1:37 PM Final Diagnosis Specimen A. SKIN, right side: GRANULOMATOUS DERMATITIS CONSISTENT WITH A RUPTURED CYST OR HAIR FOLLICLE (L72.0) 0 1:37 PM [facility] DERMATOPATHOLOGY LABORATORY Clinical History Nevus vs MM vs angioma. Path # [id number]. 0 1:37 PM [facility] DERMATOPATHOLOGY LABORATORY Gross Description Specimen A: Received is one formalin filled container labeled with the patient's name and designated right side. The specimen consists of a shave biopsy measuring 2g4o8lb. Jar 0. 0 1:37 PM [facility] DERMATOPATHOLOGY LABORATORY Microscopic Description Specimen A. SKIN, right side: Neutrophils, histiocytes, and multinucleated giant cells are present within the dermis. 0 1:37 PM [facility] DERMATOPATHOLOGY LABORATORY Disclaimer An external and internal positive and negative controls are appropriate for the histochemical, immunohistochemical and immunofluorescence stain(s) in this case (if any), except where stated explicitly. The performance characteristics of the stain(s) cited in this report were developed and its performance characteristic determined by the Dermatopathology Laboratory at [facility], directed by Dr. Tobin Simpson. These tests need not be, and therefore are not, approved by the [place] Food and Drug Administration. The tests are used for clinical purposes. Billing Codes Specimen Charges Stain Charges 01281 1 66017 1 0 1:37 PM CDT DERMATOPATHOLOGY LABORATORY Embedded Images 0 1:37 PM CDT DERMATOPATHOLOGY LABORATORY Pathology/Cytolog y TISSUE SPECIMEN FROM SKIN / Unknown 08/02/2020 08/06/2020 6:25 AM CDT Jorge Diaz MD LAB - PATHOLOGY/CYTO LOGY ORDERABLES DERMATOPATHOLOGY LABORATORY [facility] - Department of Dermatology [facility] Medicine [address] [place] [address], [address] [phone]
--- OUTSIDE RECORDS SUMMARY | 2024-10-06 15:41 | XMS_ITS | Encounter Summary ---
Author Organization [facility] Address [address] [place] [address] Care Team Providers Care Utility Teller Name Role Phone Unavailable Primary Care Provider Unavailabl e Encounter Details Date Type Department Care Team (Late st Contact Info) Description 08/06/2020 Lab Requisition [facility] Care [facility] Lab [address] [place] [phone] Jorge Diaz MD [address] [place] [address] Social History Tobacco Use Types Packs/Day Years [...] CDT) Case Report Dermatopathology Report ? Case: [id number] ? Authorizing Provider: ??Jorge Diaz MD ?Collected: [...] reveal a melanocytic proliferation. 0 1:37 PM [facility] DERMATOPATHOLOGY LABORATORY Addendum electronically signed by Xochilt Ferrell MD on 08/14/2020 at 1:37 PM Final Diagnosis Specimen A. SKIN, right side: GRANULOMATOUS DERMATITIS CONSISTENT WITH A RUPTURED CYST OR HAIR FOLLICLE (L72.0) 0 1:37 PM [facility] DERMATOPATHOLOGY LABORATORY Clinical History Nevus vs MM vs angioma. Path # [id number]. 0 1:37 PM [facility] DERMATOPATHOLOGY LABORATORY Gross Description Specimen A: Received is one formalin filled container labeled with the patient's name and designated right side. The specimen consists of a shave biopsy measuring 7g6q2ui. Jar 0. 0 1:37 PM T DERMATOPATHOLOGY LABORATORY Microscopic Description Specimen A. SKIN, right side: Neutrophils, histiocytes, and multinucleated giant cells are present within the dermis. 0 1:37 PM [facility] DERMATOPATHOLOGY LABORATORY Disclaimer An external and internal positive and negative controls are appropriate for the histochemical, immunohistochemical and immunofluorescence stain(s) in this case (if any), except where stated explicitly. The performance characteristics of the stain(s) cited in this report were developed and its performance characteristic determined by the Dermatopathology Laboratory at [facility], directed by Dr. Tobin Simpson. These tests need not be, and therefore are not, approved by the [place] Food and Drug Administration. The tests are used for clinical purposes. Billing Codes Specimen Charges Stain Charges 79552 1 67544 1 0 1:37 PM CDT DERMATOPATHOLOGY LABORATORY Embedded Images 0 1:37 PM CDT DERMATOPATHOLOGY LABORATORY Pathology/Cytolog y TISSUE SPECIMEN FROM SKIN / Unknown 08/02/2020 08/06/2020 6:25 AM CDT Jorge Diaz MD LAB - PATHOLOGY/CYTO LOGY ORDERABLES DERMATOPATHOLOGY LABORATORY [facility] - Department of Dermatology [facility] Medicine [address] [place] [address], [address] [phone] documented in this encounter Visit Diagnoses Not on filedocumented in this encounter
--- OUTSIDE RECORDS SUMMARY | 2024-10-06 15:41 | XMS_ITS | Patient Health Summary ---
Author Organization [facility] Address [address] [place] [address] Care Team Providers Care Wool Washing Machine Operator Name Role Phone Unavailable Primary Care Provider Unavailabl e Note from [facility],non-owned Affiliates and Associated Physician Practices is amultiple site organization consisting of ambulatory clinics and hospital sitesin [place], [place], [place] and [place]. This disclosure is being madepursuant to the Care Everywhere program and may not contain all information available regarding this patient. Last updated 18.[facility] Social History Tobacco Use Types Packs/Day Years [...] included. Case Report Dermatopathology Report ? Case: [id number] ? Authorizing Provider: ??Jorge Diaz MD ?Collected: ? 08/02/2020 12:00 AM ? Ordering Location: ? [facility] Care Derm[facility] Lab ?Received: ?08/06/2020 06:25 AM ? Pathologist: ? Xochilt Ferrell MD ? Specimen: ?Skin, right side ? 0 1:37 PM T DERMATOPATHOLOGY LABORATORY Addendum 1 This addendum is issued to report the results of a MART-1/Melan-A stain which failed to reveal a melanocytic proliferation. 0 1:37 PM [facility] DERMATOPATHOLOGY LABORATORY Addendum electronically signed by Xochilt Ferrell MD on 08/14/2020 at 1:37 PM Final Diagnosis Specimen A. SKIN, right side: GRANULOMATOUS DERMATITIS CONSISTENT WITH A RUPTURED CYST OR HAIR FOLLICLE (L72.0) 0 1:37 PM [facility] DERMATOPATHOLOGY LABORATORY Clinical History Nevus vs MM vs angioma. Path # [id number]. 0 1:37 PM T DERMATOPATHOLOGY LABORATORY Gross Description Specimen A: Received is one formalin filled container labeled with the patient's name and designated right side. The specimen consists of a shave biopsy measuring 1g7l4ti. Jar 0. 0 1:37 PM T DERMATOPATHOLOGY LABORATORY Microscopic Description Specimen A. SKIN, right side: Neutrophils, histiocytes, and multinucleated giant cells are present within the dermis. 0 1:37 PM [facility] DERMATOPATHOLOGY LABORATORY Disclaimer An external and internal positive and negative controls are appropriate for the histochemical, immunohistochemical and immunofluorescence stain(s) in this case (if any), except where stated explicitly. The performance characteristics of the stain(s) cited in this report were developed and its performance characteristic determined by the Dermatopathology Laboratory at [facility], directed by Dr. Tobin Simpson. These tests need not be, and therefore are not, approved by the [place] Food and Drug Administration. The tests are used for clinical purposes. Billing Codes Specimen Charges Stain Charges 81060 1 89889 1 0 1:37 PM CDT DERMATOPATHOLOGY LABORATORY Embedded Images 0 1:37 PM CDT DERMATOPATHOLOGY LABORATORY Pathology/Cytolog y TISSUE SPECIMEN FROM SKIN / Unknown 08/02/2020 08/06/2020 6:25 AM CDT Jorge Diaz MD LAB - PATHOLOGY/CYTO LOGY ORDERABLES DERMATOPATHOLOGY LABORATORY [facility] - Department of Dermatology [facility] Medicine [address] [place] [address], [address] [phone]
--- OUTSIDE RECORDS SUMMARY | 2024-10-06 15:41 | XMS_ITS | Referral Summary ---
Author Organization [facility] Address [address] [place] [address] Care Team Providers Care Financial Compliance Manager Name Role Phone Unavailable Primary Care Provider Unavailabl e Source Comments [facility],non-owned Affiliates and Associated Physician Practices is amultiple site organization consisting of ambulatory clinics and hospital sitesin [place], [place], [place] and [place]. This disclosure is being madepursuant to the Care Everywhere program and may not contain all information available regarding this patient. Last updated 18.[facility] Social History Tobacco Use Types Packs/Day Years Used Date Smoking Tobacco: Never Assessed Sex and Gender Information Value Date Recorded Sex Assigned at Not on file Gender Identity Not on file Sexual Orientation Not on file Plan of Treatment Not on file
--- OUTSIDE RECORDS SUMMARY | 2024-10-06 15:41 | XMS_ITS | Clinical Summary ---
Author Organization [facility] Address [address] [place] [address] Care Team Providers Care Palliative Care Nurse Practitioner Name Role Phone Unavailable Primary Care Provider Unavailabl e Source Comments [facility],non-owned Affiliates and Associated Physician Practices is amultiple site organization consisting of ambulatory clinics and hospital sitesin [place], [place] and [place]. This disclosure is being madepursuant to the Care Everywhere program and may not contain all information available regarding this patient. Last updated 18.[facility] Social History Tobacco Use Types Packs/Day [...]
== END 2024-10-01 18:11 | disposition home or self-care (01) ==
PROVIDERS: Emergency Provider Nurse Practitioner; PCP Nurse Practitioner Family
DX: S61.211A Laceration without foreign body of left index finger without damage to nail, initial encounter (principal); W26.8XXA Contact with other sharp object(s), not elsewhere classified, initial encounter; E78.5 Hyperlipidemia, unspecified; M17.0 Bilateral primary osteoarthritis of knee; Z98.52 Vasectomy status
CPT/HCPCS: 12001; 99212; G0463; J2003

== ENCOUNTER 2024-10-06 09:00 | Outpatient (CLI) | payer BC, SELFPAY ==
--- NOTE | ~2024-10-06 | MR_ITS ---
MRI of the left knee Clinical history: Pain Technique: Coronal proton density and proton density-weighted images, sagittal proton-density and T2 fat-sat images, and axial proton-density fat-saturated images were acquired. Findings: Anterior and posterior cruciate ligaments are intact. Medial collateral ligament and the la teral collateral ligament complex are intact. Popliteus tendon is intact. Medial and lateral menisci are intact, without evidence of tear. There is high-grade chondromalacia the patellar apex with subchondral cystic change and presumed reac tive marrow edema in the central aspect of the patella. Remaining articular cartilage is well preserv ed. Remaining bone marrow signals are intact. Extensor mechanism is intact. No joint effusion. Minimal Sol's cyst. 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 Minimal Sol's cyst. Reviewed, dictated and finalized at [facility]. [employer] Impression: High-grade chondromalacia patella with extensive reactive marrow edema and subc hondral cystic change in the patella itself. Minimal Sol's cyst.
== END 2024-10-06 09:01 | disposition home or self-care (01) ==
PROVIDERS: PCP Nurse Practitioner Family; Visit Provider Nurse Practitioner Family
DX: M25.562 Pain in left knee (principal)
CPT/HCPCS: 73721

== ENCOUNTER 2025-08-03 00:27 | Day surgery (SDC) | payer BC, SELFPAY ==
[2025-07-25 13:07] VITALS: BMI 28.8
--- OUTSIDE RECORDS SUMMARY | 2025-08-03 00:31 | XMS_ITS | Clinical Summary ---
Author Organization [facility] Address [address] [place] [address] Care Team Providers Care Route Sales Representative Name Role Phone Unavailable Primary Care Provider Unavailabl e Source Comments [facility],non-owned Affiliates and Associated Physician Practices is amultiple site organization consisting of ambulatory clinics and hospital sitesin [place], [place], [place] and [place]. This disclosure is being madepursuant to the Care Everywhere program and may not contain all information available regarding this patient. Last updated 18.[facility] Social History Tobacco Use Types Packs/Day Years Used Date Smoking Tobacco: Never Assessed Sex and Gender Information Value Date Recorded Sex Assigned at Not on file Legal Sex Male 6:19 PM [employer]AIR [employer] Gender Identity Not on file Sexual Orientation Not on file Plan of Treatment Health Maintenance Due Date Last Done Comments LIPID TESTING 1984 HIV SCREENING 1999 HEPATITIS C SCREENING 03/28/2002 DTAP/TDAP/TD VACCINES (1 - Tdap) 2003 HEPATITIS B VACCINE (1 of 3 - 19+ 3-dose series) 2003 HPV VACCINE (1 - 3-dose SCDM series) 2011 DEPRESSION SCREENING 10/18/2024 COVID-19 VACCINE (1 - 2023-2 5 season) 2025 INFLUENZA VACCINE (#1) 2025 ZOSTER VACCINE (1 of 2) 2034 HIB VACCINE Aged Out No longer eligi ble based on patient's age to complete this topic MENINGOCOCCAL (Group B) VACC INE SHARED DECISION-MAKING Aged Out No longer eligibl e based on patient's age to complete this topic MENINGOCOCCAL GROUPS A/C/Y/W VACCINE Aged Out No longer eligible b ased on patient's age to complete this topic PNEUMOCOCCAL VACCINE Aged Out No long er eligible based on patient's age to complete this topic Insurance [facility]
--- OUTSIDE RECORDS SUMMARY | 2025-08-03 00:31 | XMS_ITS | Encounter Summary ---
Author Organization [facility] Address [address] [place] [address] Care Team Providers Care Manager Behavior Name Role Phone Unavailable Primary Care Provider Unavailabl e Encounter Details Date Type Department Care Team (Late st Contact Info) Description 08/06/2020 Lab Requisition 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 Received: 08/06/2020 06:25 AM Pathologist: Xochilt Ferrell MD Specimen: Skin, right side 0 1:37 PM CDT DERMATOPATHOLOGY LABORATORY Addendum 1 This addendum is issued to report the results of a MART-1/Melan-A stain which failed to reveal a melanocytic proliferation. 0 1:37 PM CDT DERMATOPATHOLOGY LABORATORY Addendum electronically signed by Xochilt Ferrell MD on 08/14/2020 at 1337 CDT Final Diagnosis Specimen A. SKIN, right side: GRANULOMATOUS DERMATITIS CONSISTENT WITH A RUPTURED CYST OR HAIR FOLLICLE (L72.0) 0 1:37 PM CDT DERMATOPATHOLOGY LABORATORY at 1705 CDT Clinical History Nevus vs MM vs angioma. Path # [id number]. 0 1:37 PM CDT DERMATOPATHOLOGY LABORATORY Gross Description Specimen A: Received is one formalin filled container labeled with the patient's name and designated right side. The specimen consists of a shave biopsy measuring [id number]. Jar 0. 0 1:37 PM CDT DERMATOPATHOLOGY LABORATORY Microscopic Description Specimen A. SKIN, right side: Neutrophils, histiocytes, and multinucleated giant cells are present within the dermis. 0 1:37 PM CDT DERMATOPATHOLOGY LABORATORY Disclaimer An external and internal positive and negative controls are appropriate for the histochemical, immunohistochemical and immunofluorescence stain(s) in this case (if any), except where stated explicitly. The performance characteristics of the stain(s) cited in this report were developed and its performance characteristic determined by the Dermatopathology Laboratory at [facility], directed by Dr. Tobin Simpson. These tests need not be, and therefore are not, approved by the [place] Food and Drug Administration. The tests are used for clinical purposes. Billing Codes Specimen Charges Stain Charges 63219 1 89169 1 0 1:37 PM CDT DERMATOPATHOLOGY LABORATORY Embedded Images 0 1:37 PM CDT DERMATOPATHOLOGY LABORATORY Pathology/Cytolog y TISSUE SPECIMEN FROM SKIN / Unknown 08/02/2020 08/06/2020 6:25 AM CDT us Jorge Diaz MD LAB - PATHOLOGY/CYTOLOGY ORDER VANESSA Edited Result - Final DERMATOPATHOLOGY LABORATORY [facility] - Department of Dermatology [address], [address] [phone] documented in this encounter Visit Diagnoses Not on filedocumented in this encounter
[2025-08-03 08:28] VITALS: BP 129/94; PULSE 72; RESP 18; TEMP 36.2; O2SAT 98
--- NOTE | 2025-08-03 08:38 | WPDANESEPPF ---
Anes - Initial Pre Proc Eval Procedure: Operation Date: 08/03/25 09:30 Proposed Procedures p Diagnostic Colonoscopy - Sampson Porter MD Date/Time: 08/03/25 08:38 Surgeon: Sampson Porter MD Pre Op Diagnosis: Unspecified abdominal pain Patient Data Age: 40 Gender: M Height: 1.75 m Weight: 88 kg Last Vital Signs Temp 36.2 C L 08/03/25 08:28 Pulse 72 08/03/25 08:28 Resp 18 08/03/25 08:28 BP 129/94 H 08/03/25 08:28 Pulse Ox 98 08/03/25 08:28 O2 Del Method Room Air 08/03/25 08:28 Allergies Allergy/AdvReac Type Severity Reaction Status Date / Time Penicillins Allergy Mild Hives Verified 08/03/25 08:24 Home Medications ?Medication ?Instructions ?Recorded ?Confirmed ?Type cetirizine 10 mg tablet (Zyrtec) 10 mg PO DAILY 03/01/24 07/25/25 History fluticasone propionate 50 1 spray intranasal DAILY 03/01/24 07/25/25 History mcg/actuation nasal spray,suspension (Flonase Allergy Relief) multivitamin 1 tablet PO DAILY 03/01/24 07/25/25 History omega 9-qrl-ntd-fish oil 1,200 mg 1 cap PO DAILY 08/08/24 07/25/25 History (144 mg-216 mg) capsule (Fish Oil) meloxicam 15 mg tablet 15 mg PO DAILY #30 tabs 01/22/25 07/25/25 Rx atorvastatin 10 mg tablet 10 mg PO DAILY #90 tabs 07/04/25 07/25/25 Rx hydrochlorothiazide 12.5 mg tablet 12.5 mg PO DAILY #30 tabs 07/04/25 07/25/25 Rx Patient hx anesthesia problems: none Family hx anesthesia problems: none Results Review: All pre-operative results and documents have been reviewed as part of the pre-operative evaluation. [facility] Past Medical History Medical History (Updated 07/04/25 @ 09:41 by Felicia Odonnell NP) Abdominal cramping Abnormal stools Hypertension BMI 28.0-28.9,adult Patellofemoral pain syndrome Right knee DJD Left knee DJD Right knee pain Left knee pain BMI 29.0-29.9,adult Lump in the groin Elevated BP without diagnosis of hypertension Witnessed episode of apnea Hypersomnia Snoring Bilateral knee pain Elevated fasting glucose Hyperlipidemia Seasonal allergies Surgical History Surgical History H/O inguinal hernia repair 08/16/24 Reducible pantaloon right inguinal hernia Dr. [place] H/O: vasectomy 2021 Family History Family History Father Diabetes mellitus Grandparent Hypertension Social History Social History Smoking status: Never smoker Alcohol intake: current Drinks per week: 4 Alcohol use details: Beer- 4-5 a week Substance use: never Substance use type: does not use Do You Feel Safe in your Home?: Yes Lack of Transportation: No Lack of Food: Never True Current Housing: I Have Housing Concerned About Future Housing: No Difficulty Paying Gas/Electric Bills: No Difficulty Paying for Meds: No Currently Unemployed: No Education: Bachelor's Degree Difficulty w/ Childcare or Family Care: No Living arrangements: with family Spiritual care concerns: No Anes - Eval Final PreProcedure Day of Procedure 08/03/25 08:38 Patient weight: overweight Heart: regular rate and rhythm Lungs: clear to auscultation Airway: Mallampati scale class II Neurological: alert and oriented Last oral intake: >/= 8 hours ASA classification: II Emergent: no Anesthetic plan: proceed Anesthesia type and monitoring: general GIVS and standard monitoring Results Review: All pre-operative results and documents have been reviewed as part of the pre-operative evaluation. Informed Consent: The patient's anesthetic plan and its attendant risks and benefits were discussed with the patient/family/POA. Questions were solicited and answers provided to the satisfaction of the patient/family/POA.
[2025-08-03] MEDS: LACTATED RINGERS 1,000 ML 150 ML IV CONT (08:41)
--- NOTE | 2025-08-03 09:27 | PM.IMHP ---
H&P: HPI History of Present Illness Date/Time: 08/03/25 09:27 Chief Complaint: Change in bowel habits Narrative: Patient referred for colonoscopy for having noticed recent increase in frequency of defecation, decreased caliber of stools. There is no unintentional weight loss, rectal bleeding, tenesmus or urgency. Review of Systems Review of Systems: All systems reviewed & are unremarkable except as noted in HPI and below PMFSH Past Medical History Medical History (Updated 07/04/25 @ 09:41 by Felicia Odonnell NP) Abdominal cramping Abnormal stools Hypertension BMI 28.0-28.9,adult Patellofemoral pain syndrome Right knee DJD Left knee DJD Right knee pain Left knee pain BMI 29.0-29.9,adult Lump in the groin Elevated BP without diagnosis of hypertension Witnessed episode of apnea Hypersomnia Snoring Bilateral knee pain Elevated fasting glucose Hyperlipidemia Seasonal allergies Surgical History Surgical History H/O inguinal hernia repair 08/16/24 Reducible pantaloon right inguinal hernia Dr. [place] H/O: vasectomy 2021 Family History Family History Father Diabetes mellitus Grandparent Hypertension Social History Social History Smoking status: Never smoker Alcohol intake: current Drinks per week: 4 Alcohol use details: Beer- 4-5 a week Substance use: never Substance use type: does not use Do You Feel Safe in your Home?: Yes Lack of Transportation: No Lack of Food: Never True Current Housing: I Have Housing Concerned About Future Housing: No Difficulty Paying Gas/Electric Bills: No Difficulty Paying for Meds: No Currently Unemployed: No Education: Bachelor's Degree Difficulty w/ Childcare or Family Care: No Living arrangements: with family Spiritual care concerns: No Meds Home Medications and Allergies Home Medications ?Medication ?Instructions ?Recorded ?Confirmed ?Type cetirizine 10 mg tablet (Zyrtec) 10 mg PO DAILY 03/01/24 07/25/25 History fluticasone propionate 50 1 spray intranasal DAILY 03/01/24 07/25/25 History mcg/actuation nasal spray,suspension (Flonase Allergy Relief) multivitamin 1 tablet PO DAILY 03/01/24 07/25/25 History omega 4-lpz-urz-fish oil 1,200 mg 1 cap PO DAILY 08/08/24 07/25/25 History (144 mg-216 mg) capsule (Fish Oil) meloxicam 15 mg tablet 15 mg PO DAILY #30 tabs 01/22/25 07/25/25 Rx atorvastatin 10 mg tablet 10 mg PO DAILY #90 tabs 07/04/25 07/25/25 Rx hydrochlorothiazide 12.5 mg tablet 12.5 mg PO DAILY #30 tabs 07/04/25 07/25/25 Rx Allergies Allergy/AdvReac Type Severity Reaction Status Date / Time Penicillins Allergy Mild Hives Verified 08/03/25 08:24 Vital Signs Vital Signs - 24 hr 08/03/25 08:28 Temperature 97.2 F L Pulse Rate 72 Respiratory Rate 18 Blood Pressure 129/94 H Pulse Oximetry 98 Oxygen Delivery Room Air Exam Const: General: cooperative and healthy appearing Resp: Effort & Inspection: normal respiratory effort and able to speak in complete sentences Auscultation: clear to auscultation bilaterally Cardio: Rate: regular rate Rhythm: regular rhythm GI: Inspection: normal to inspection GI Palp: No No hepatosplenomegaly present Auscultation: normal bowel sounds Rectal Exam: deferred Skin: General skin exam: normal color Psych: Appearance: grossly normal Mental Status: mental status grossly normal Assessment and Plan Assessment and plan (1) Abnormal stools: Code(s): R19.5 - Other fecal abnormalities Status: Acute Assessment and Plan: The patient is deemed a good candidate for the procedure. Consent signed. Will proceed.
[2025-08-03] MEDS: SIMETHICONE ORAL SUSPENSION 20 MG/0.3 ML 30 ML BOTTLE 0.6 ML IRRIGATION (09:48)
[2025-08-03 09:54] VITALS: BP 108/70; PULSE 75; RESP 21; O2SAT 97
[2025-08-03 10:04] VITALS: BP 116/75; PULSE 67; RESP 19; O2SAT 98
[2025-08-03 10:14] VITALS: BP 127/95; PULSE 64; RESP 19; O2SAT 100
== END 2025-08-03 10:21 | disposition home or self-care (01) ==
PROVIDERS: PCP Nurse Practitioner Family; Referring Provider Nurse Practitioner Family; Visit Provider Internal Medicine Gastroenterology
PROC: 0DJD8ZZ Inspection of Lower Intestinal Tract, Via Natural or Artificial Opening Endoscopic (ICD-10-PCS; CPT 45378; principal; 2025-08-03 09:30)
DX: R19.5 Other fecal abnormalities (principal); R19.4 Change in bowel habit
CPT/HCPCS: 45378; J2003; J2704; J7120